=== PATIENT | female | born 1965 | race Caucasian/White ===

== ENCOUNTER 2016-12-26 09:57 | Emergency (ER) | payer OTHER ==
[~2016-12-26 09:57] MED LIST: Sodium Chloride 0.9% 1,000 ML BAG ONE; Sodium Chloride 0.9% 100 ML BAG ONE
[2016-12-26] MEDS ORDERED: Ketorolac Tromethamine 30 MG/ML VIAL ONE (10:26)
[2016-12-26] MEDS ORDERED: Iopamidol 370 76% 100 ML VIAL ONE (10:28)
[2016-12-26 11:14] LABS: ALT (SGPT) 77 U/L (8-55); AST (SGOT) 72 U/L (5-34); Albumin 4.4 g/dL (3.5-5.0); Alkaline Phosphatase 103 U/L (40-150); Anion Gap 22 mmol/L (10-20); BUN (Urea Nitrogen) 11 mg/dL (7.0-18.7); Bilirubin, Total 1.3 mg/dL (0.2-1.2); Calc. Creatinine Clearance 0 mL/min (70-130); Calcium 9.9 mg/dL (7.8-10.44); Carbon Dioxide 19 mmol/L (22-29); Chloride 101 mmol/L (98-107); Estimated GFR-MDRD 83; Globulin 3.5 g/dL (2.4-3.5); Glucose 119 mg/dL (70-105); Lipase 17 U/L (8-78); Potassium 3.9 mmol/L (3.5-5.1); Protein, Total 7.9 g/dL (6.0-8.3); Sodium 138 mmol/L (136-145)
[2016-12-26 11:19] LABS: Bilirubin Negative (Negative); Blood, Urine Small (Negative); Clarity Clear (Clear); Glucose, Urine (Dipstick) Negative (Negative); Leukocyte Negative (Negative); Nitrite Negative (Negative); Protein, Urine (Dipstick) Negative (Neg-Trace); Urobilinogen 0.2 mg/dL (0.2-1.0)
[2016-12-26 11:20] LABS: #Lymphocytes 1.1 thou/uL (1.20-3.40); #Monocytes 0.5 thou/uL (0.11-0.59); #Neutrophils 12.1 thou/uL (1.40-6.50); %Basophils 0.2 % (0.0-1.0); %Eosinophils 0.3 % (0.0-10.0); %Lymphocytes 8.1 % (21.0-51.0); %Monocytes 3.5 % (0.0-10.0); Hemoglobin 14.4 g/dL (12.0-16.0); Mean Corpuscular HGB CONC 34.8 g/dL (32.0-36.0); Mean Corpuscular Volume 103.6 fl (81.0-99.0); Mean Platelet Volume 7.7 fL (7.4-10.4); Platelet Count 217 thou/uL (130-400); RBC Distribution Width 12.5 % (11.5-14.5); Red Blood Cell (RBC) Count 3.98 mill/uL (4.20-5.40); White Blood Cell (WBC) Count 13.7 thou/uL (4.8-10.8)
[2016-12-26 11:24] LABS: Pregnancy Test - Urine (BHCG) Negative (Negative); Pregu Control Background? CLEAR/WHITE (CLR/WHITE); Pregu Control Bar Appear? YES (CONTROL BAR)
[2016-12-26 11:33] LABS: Bacteria/HPF Rare-Few HPF (None Seen); RBC/HPF 0-3 HPF (0-3); Squamous Epithelial 0-3 HPF (0-3); WBC/HPF 0-3 HPF (0-3)
[2016-12-26 11:33] LABS: Manual Diff?? NO
[2016-12-26] MEDS ORDERED: ceFOXitin 1 GM VIAL ONE ×2 (11:35→11:37)
--- NOTE | 2016-12-26 12:50 | CT ---
CT ABDOMEN AND PELVIS WITH CONTRAST: HISTORY: Bilateral lower abdominal pain for three days. COMPARISON: None. TECHNIQUE: Multiple contiguous axial images were obtained in a CT of the abdomen and pelvis with contrast. Cor onal reformats were performed. FINDINGS: The patient incidentally has a horseshoe kidney. No calcifications are seen in either moiety of the horseshoe kidney, and there is no evidence of hydronephrosis. A Pike catheter decompresses the ur inary bladder. There is a 6 cm mass emanating from the right aspect of the uterus, which represents a fibroid. There are scattered diverticula in the sigmoid colon. There are standing changes surrounding the di verticula in the sigmoid colon, consistent with acute diverticulitis. No free air or free fluid is seen in the abdomen or pelvis. The small bowel is normal in caliber. The liver, gallbladder, adrenal glands, spleen, and pancreas are unremarkable. No abdominal adenopa thy is seen. Degenerative changes are seen in the spine. The visualized inferior thorax and abdominal wall soft tissues are unremarkable. IMPRESSION: 1. Acute diverticulitis. 2. Horseshoe kidney. 3. Fibroid uterus. POS: [facility]
[2016-12-26] MEDS ORDERED: Morphine 4 MG/ML Carpuject ONE (13:12)
[2016-12-26] MEDS ORDERED: metroNIDAZOLE 500 MG/100 ML BAG ONE (13:12)
[2016-12-26] MEDS ORDERED: Acetaminophen 500 MG TAB ONE (13:46)
== END 2016-12-26 14:02 | disposition short-term general hospital (02) ==
LOC: MADERS 09:57
DX: K57.92 Diverticulitis of intestine, part unspecified, without perforation or abscess without bleeding (principal); D72.829 Elevated white blood cell count, unspecified
CPT/HCPCS: 36415; 51702; 74177; 80053; 81003; 81015; 81025; 82150; 83690; 85025; 85652; 86140; 87040; 94760; 96361; 96365; 96367; 96375; J0694; J1885; J2270; J7050